=== PATIENT | male | born 1990 | race Caucasian/White ===

== ENCOUNTER 2018-09-20 15:51 | Emergency (ER) | payer SELFPAY ==
[~2018-09-20] VITALS: Ht 170.2 cm; Wt 84.0 kg
[2018-09-20 15:59] VITALS: Ht 170.2 cm; Wt 84.0 kg
--- NOTE | 2018-09-20 17:34 | ERD ---
ER Documentation Chief Complaint Chief Complaint PT BIB RA with c/o ETOH , sleeping on the street. HPI This is a 28-year-old gentleman who presents via EMS for being found drunk in public. The patient was sleeping on the street. The patient admits to drinking alcohol. He states that "I need some alcohol ". Patient denies any falls or trauma, no trauma reported via EMS. Patient otherwise has no complaints. He denies any suicidal or homicidal ideation. No hematemesis or melena. ROS All systems reviewed and are negative except as per history of present illness. Medications Home Meds Unable to Obtain Active Prescriptions or Reported Meds Allergies Allergies: Coded Allergies: No Known Allergy (Unverified , 09/20/18) PMhx/Soc History of Surgery: No Anesthesia Reaction: No Hx Neurological Disorder: No Hx Respiratory Disorders: No Hx Cardiac Disorders: No Hx Psychiatric Problems: No Hx Miscellaneous Medical Probl: No Hx Alcohol Use: Yes (ETOH abuse) Hx Substance Use: No Hx Tobacco Use: No Smoking Status: Never smoker FmHx Family History: No diabetes Physical Exam Vitals Vital Signs Date Temp Pulse Resp B/P (MAP) Pulse Ox O2 O2 Flow FiO2 Time Delivery Rate 09/20/18 98.0 103 18 127/73 98 15:59 (91) Physical Exam General: Intoxicated, protecting airway Head: Normocephalic, atraumatic. Eyes: Pupils equally reactive, EOM intact ENT: Moist mucous membranes Neck: Supple, no lymphadenopathy Respiratory: Lungs clear bilaterally, no distress Cardiovascular: RRR, no murmurs, rubs, or gallops Abdominal: Soft, non-tender, non-distended, no peritoneal signs : Deferred MSK: No edema, no unilateral swelling, 5/5 strength Neurologic: Poorly cooperative, moving all extremities Skin: No rash Psych: Normal mood Procedures/MDM EKG, MONITORS, & DIAGNOSTIC IMAGING: None Required PROCEDURES: None Required MEDICAL DECISION MAKING: The patient's presentation is consistent with acute alcohol intoxication I have a much lower clinical concern for clinically significant traumatic brain injury, meningitis, significant electrolyte disturbance. The patient's workup will include a medical screening examination as well as observation for sobriety. The patient's presentation is most consistent with acute alcohol intoxication leading to acute encephalopathy. The patient is protecting their airway. The patient has no signs or symptoms concerning for impending respiratory failure and does not require intubation at this time. The patient will require observation in the emergency room to allow for metabolization. Once the patient is able to ambulate on their own accord, navigate the community the patient can be safely discharged from the emergency room. ER COURSE: * Patient continues to be well-appearing in the emergency room OBSERVATION: Observation Note: Indication: Alcohol Intoxication Duration: Greater than 4 hours Family history: As above The patient was observed with serial exams over the above timeframe. The patient continued to be well-appearing, and observation continued without complication. CONSULTATION: None DISPOSITION PLAN: Pending sobriety Departure Diagnosis: Primary Impression: Acute alcohol intoxication Complication of substance-induced condition: uncomplicated Qualified Codes: F10.920 - Alcohol use, unspecified with intoxication, uncomplicated Condition: Stable VLADIMIR PACHECO MD September 20, 2018 17:34
[2018-09-20 23:23] VITALS: BP 115/81; PULSE 97; RESP 18
== END 2018-09-20 23:33 | disposition home or self-care (01) ==
LOC: E/R 15:51
DX: F10.920 Alcohol use, unspecified with intoxication, uncomplicated (principal)
CPT/HCPCS: 99283